=== PATIENT | male | born 1965 | race Caucasian/White ===

== ENCOUNTER → 2016-12-17 | Outpatient (CLI) | payer BC ==
--- NOTE | 2016-12-17 11:20 | REP ---
PA and lateral chest: Comparison is 09/14/2009. There is a comparison chest CT dated 10/28/2003. The left hilus appears mildly enlarged. The right hilus is unremarkable. This is unchanged. There is no mediastinal widening. The mediastinum is unremarkable. The lung jefferson are clear. The interstitium is unremarkable. Bony thorax is unremarkable. Impression: Mildly enlarged left hilus, unchanged. Otherwise, essentially negative chest. Signed by Abhishek Lin MD 12/17/2016 11:11 A
== END ==
LOC: M WUC 10:53
PROVIDERS: ATTEND Physician Assistant
DX: R05 Cough (principal); D86.9 Sarcoidosis, unspecified

== ENCOUNTER 2020-08-24 02:01 | Emergency (ER) | payer BC ==
[~2020-08-24] VITALS: Ht 160 cm; Wt 84.5 kg
[2020-08-24] MEDS ORDERED: NS 1,000 ML IV ONE (02:45)
[2020-08-24] MEDS ORDERED: IRBE150T7 PO (02:49)
[2020-08-24] MEDS ORDERED: BAYECHW PO (02:49)
[2020-08-24] MEDS ORDERED: EQLTAB27 PO (02:49)
[2020-08-24] MEDS ORDERED: AZEL1SPR3 NARES (02:49)
[2020-08-24] MEDS ORDERED: MONT10TA10 PO (02:49)
[2020-08-24] MEDS ORDERED: BUDE0.5S6 INH (02:49)
[2020-08-24] MEDS ORDERED: FLUTISP NARES (02:49)
[2020-08-24] MEDS ORDERED: LEVO125T4 PO (02:49)
[2020-08-24] MEDS ORDERED: CETI10CA2 PO (02:49)
[2020-08-24 02:56] LABS: BASO # 0.1 10^3/uL (0.0-0.2); BASO % 0.6 % (0.0-1.0); EOS # 0.1 10^3/uL (0.0-0.5); EOS % 0.4 % (0.0-3.0); HEMATOCRIT 48.6 % (42.0-52.0); HEMOGLOBIN 15.8 g/dl (13.5-17.5); LYMPH # 1.4 10^3/uL (1.5-5.0); LYMPH % 11.5 % (24.0-44.0); MEAN CORPUSCULAR HEMOGLOBIN 30.4 pg (27.0-33.0); MEAN CORPUSCULAR HGB CONC 32.5 g/dl (32.0-36.5); MEAN CORPUSCULAR VOLUME 93.6 fl (80.0-96.0); MONO # 0.6 10^3/uL (0.0-0.8); NEUTROPHILS # 10.2 10^3/uL (1.5-8.5); PLATELET COUNT, AUTOMATED 246 10^3/uL (150-450); RED BLOOD COUNT 5.19 10^6/uL (4.30-6.10); WHITE BLOOD COUNT 12.5 10^3/uL (4.0-10.0)
[2020-08-24] MEDS ORDERED: ONDANSETRON 4MG/2ML VIAL IV ONE (03:15)
[2020-08-24] MEDS: MORPHINE 4 MG/ML 1ML VIAL/SYRINGE (J2270) IV PRN ×2 (03:24→04:24)
[2020-08-24] MEDS ORDERED: ISOVUE-370 76% 100ML VIAL As Ordered ONE (03:25)
[2020-08-24 03:30] LABS: ALBUMIN 4.3 GM/DL (3.2-5.2); ALT/SGPT 42 U/L (12-78); BILIRUBIN,DIRECT 0.1 MG/DL (0.0-0.2); BILIRUBIN,TOTAL 0.3 MG/DL (0.2-1.0); CK-MB VALUE MASS < 1.0 NG/ML (<3.6); CPK CREATINE PHOSPHOKINASE 121 U/L (39-308); LIPASE 111 U/L (73-393); MB/CK RELATIVE INDEX 0.83 (< OR =4); TOTAL PROTEIN 8.1 GM/DL (6.4-8.2); TROPONIN I < 0.02 NG/ML (< 0.10)
--- NOTE | 2020-08-24 04:11 | REPVR ---
PROCEDURE INFORMATION: Exam: CT Angiography Chest With Contrast Exam date and time: 08/24/2020 3:43 AM Age: 55 years old Clinical indication: Chest pain; Additional info: Epigastric pain through to back TECHNIQUE: Imaging protocol: Computed tomographic angiography of the chest with contrast. 3D rendering (Not supervised by radiologist): MIP and/or 3D reconstructed images were created by the technologist. Radiation optimization: All CT scans at this facility use at least one of these dose optimization techniques: automated exposure control; mA and/or kV adjustment per patient size (includes targeted exams where dose is matched to clinical indication); or iterative reconstruction. Contrast material: ISO 370; Contrast volume: 100 ml; Contrast route: INTRAVENOUS (IV); COMPARISON: CR CHEST 2 VIEW 2016-12-17 11:01 FINDINGS: Pulmonary arteries: Normal. No pulmonary emboli. Aorta: Unremarkable. No aortic aneurysm. No aortic dissection. Lungs: Unremarkable. No consolidation. No masses. Pleural spaces: Unremarkable. No pneumothorax. No pleural effusion. Heart: Unremarkable. No cardiomegaly. No pericardial effusion. Mediastinal space: Small gastroesophageal sliding type hiatal hernia. Mild gastro-esophageal thickening. Question distal esophagitis. Lymph nodes: Unremarkable. No enlarged lymph nodes. Bones/joints: Unremarkable. No acute fracture. Soft tissues: Unremarkable. IMPRESSION: 1. No acute vascular abnormality. 2. Mild gastro-esophageal thickening. Question distal esophagitis. Electronically signed by: Nicolas Heath On 08/24/2020 04:11:32 AM
--- NOTE | 2020-08-24 04:12 | REPVR ---
PROCEDURE INFORMATION: Exam: CT Angiography Abdomen and Pelvis With Contrast Exam date and time: 08/24/2020 3:43 AM Age: 55 years old Clinical indication: Abdominal pain; Acute; Additional info: Epigastric pain through to back TECHNIQUE: Imaging protocol: Computed tomographic angiography of the abdomen and pelvis with contrast material. 3D rendering (Not supervised by radiologist): MIP and/or 3D reconstructed images were created by the technologist. Radiation optimization: All CT scans at this facility use at least one of these dose optimization techniques: automated exposure control; mA and/or kV adjustment per patient size (includes targeted exams where dose is matched to clinical indication); or iterative reconstruction. Contrast material: ISO 370; Contrast volume: 100 ml; Contrast route: INTRAVENOUS (IV); COMPARISON: No relevant prior studies available. FINDINGS: Mediastinal space: Mild gastro-esophageal thickening. Question distal esophagitis. Aorta: No aortic aneurysm. No aortic dissection. Celiac trunk and mesenteric arteries: No occlusion or significant stenosis. Renal arteries: No occlusion or significant stenosis. Right iliac arteries: No occlusion or significant stenosis. Left iliac arteries: No occlusion or significant stenosis. Liver: No mass. Gallbladder and bile ducts: Gallbladder distension with some haziness around the wall, correlate. There is a small stone in the cystic duct. Pancreas: Unremarkable. No mass. No ductal dilation. Spleen: Unremarkable. No splenomegaly. Adrenal glands: Unremarkable. No mass. Kidneys and ureters: Unremarkable. No solid mass. No hydronephrosis. Stomach and bowel: Mild colonic diverticulosis without evidence for acute diverticulitis. Small bowel feces sign with mild upstream ileal dilatation. Gastric distension. Appendix: Appendectomy. Intraperitoneal space: Unremarkable. No free air. No significant fluid collection. Lymph nodes: Unremarkable. No enlarged lymph nodes. Urinary bladder: Unremarkable. No mass. Reproductive: Unremarkable as visualized. Bones/joints: No acute fracture. No dislocation. Soft tissues: Unremarkable. IMPRESSION: 1. No acute vascular abnormality. 2. Gallbladder distension with some haziness around the wall, correlate. There is a small stone in the cystic duct. 3. Mild gastro-esophageal thickening. Question distal esophagitis. Electronically signed by: Nicolas Heath On 08/24/2020 04:12:55 AM
[2020-08-24] MEDS ORDERED: GI COCKTAIL 50ML BTL(HYOSCYAMINE/MAALOX/LIDOCAINE VISCOUS)(1:3:1) PO ONE (04:30)
[2020-08-24] MEDS ORDERED: FAMOTIDINE IV BAG 20 MG in IV 1 EA IV ONE (05:30)
[2020-08-24] MEDS ORDERED: PANTOPRAZOLE 40MG VIAL (C9113 PER 1) IV ONE (05:30)
[2020-08-24] MEDS ORDERED: SUCRALFATE 1 GM TAB PO ONE (05:30)
[2020-08-24] MEDS ORDERED: PROTPAK PO (06:09)
[2020-08-24] MEDS ORDERED: PEPC1TAB5 PO (06:09)
[2020-08-24] MEDS ORDERED: CARA1TAB6 PO (06:09)
--- NOTE | 2020-08-24 06:17 | ECGEPIP ---
[facility] - ED Test Date: 2020-08-24 Pat Name: RACHEL FLORES Department: Room: - Gender: Male Customer Consulting Manager: SUSAN : 1965 Requested By: SANGEETHA Perez Order Number: [id number] Reading MD: Albino العراقي Measurements Intervals [place] Rate: 61 P: 5 MT: 145 QRS: 18 QRSD: 94 T: 32 QT: 413 QTc: 419 Interpretive Statements SINUS RHYTHM NO PRIORS FOR COMPARISON Electronically Signed on 08-24-2020 6:17:42 EST by Albino العراقي
[2020-08-24] MEDS: ONDANSETRON 4MG/2ML VIAL IV ONE ×2 (06:25→06:28)
[2020-08-24 06:27] VITALS: BP 145/84
--- NOTE | 2020-08-25 07:23 | ED PDOC ---
Post-Departure Follow-Up radiology report faxed to veronica Hoffman Sarah MD Aug 25, 2020 07:23
== END 2020-08-24 06:36 | disposition home or self-care (01) ==
LOC: M ED 02:01
DX: K21.00 Gastro-esophageal reflux disease with esophagitis, without bleeding (principal); D86.9 Sarcoidosis, unspecified; Z79.899 Other long term (current) drug therapy; Z79.82 Long term (current) use of aspirin
CPT/HCPCS: 71275; 74174; 80047; 80076; 82550; 82553; 83690; 84484; 85025; 93005; 93041; 96361; 96365; 96375; 96376; 99285; C9113; J2270; J2405; Q9967

== ENCOUNTER → 2020-11-30 | Outpatient (CLI) | payer BC ==
[~2020-11-30] MED LIST: AZEL1SPR3 NARES; BAYECHW PO; BUDE0.5S6 INH; CARA1TAB6 PO; CETI10CA2 PO; EQLTAB27 PO; FLUTISP NARES; IRBE150T7 PO; LEVO125T4 PO; MONT10TA10 PO; PEPC1TAB5 PO; PROTPAK PO
--- NOTE | 2020-11-30 08:06 | REP ---
INDICATION: K82.9- DISORDER OF GB TECHNIQUE: Real time B-mode coello scale ultrasound examination using curved array transducer. FINDINGS: Liver, spleen, and pancreas are normal in contour, size, echogenicity, and overall appearance. No focal hepatic, splenic or pancreatic lesions are identified. Gallbladder demonstrates small polyps measuring less than 3 mm. No gallstones, wall thickening, or pericholecystic fluid. No biliary ductal dilatation is appreciated and the common bile duct measures 3.3 mm diameter. The bilateral kidneys are normal in reniform shape without hydronephrosis or obvious abnormality. Right kidney measures 11.8 x 6.2 x 6.0 cm. Left kidney measures 12.4 x 5.4 x 5.8 cm. Abdominal aorta is normal. No ascites. IMPRESSION: Essentially normal age-appropriate complete abdominal ultrasound. <Electronically signed by Juancarlos Castro > 11/30/20 0812
== END ==
LOC: M RAD 06:36
PROVIDERS: ATTEND Internal Medicine Gastroenterology
DX: K82.9 Disease of gallbladder, unspecified (principal)

== ENCOUNTER → 2023-03-10 | Outpatient (CLI) | payer BC ==
[~2023-03-10] MED LIST changes: +FLUT50SP17 NARES; -FLUTISP NARES; -MONT10TA10 PO; +MONT10TA97 PO
== END ==
LOC: M WUC 09:46
PROVIDERS: ATTEND Physician Assistant
DX: S46.212A Strain of muscle, fascia and tendon of other parts of biceps, left arm, initial encounter (principal); R60.0 Localized edema; X58.XXXA Exposure to other specified factors, initial encounter; Y92.9 Unspecified place or not applicable; Y93.9 Activity, unspecified; Y99.9 Unspecified external cause status